=== PATIENT | female | born 1995 | race Caucasian/White ===

== ENCOUNTER 2018-08-24 19:30 | Inpatient (IN) | payer OTHER, MEDICAID, SELFPAY ==
[2017-04-29 13:35] VITALS: BMI 28.7
[2018-08-24 18:57] VITALS: BMI 31.5
[2018-08-24] MEDS: Lactated Ringers 1,000 ML 50 ML IV ×2 (20:18→22:16)
--- NOTE | 2018-08-24 20:26 | PCM.HP.OB ---
History Date of Admission: 08/24/18 Final RONALDO: 08/31/18 Final RONALDO Source: US <20 weeks Gestational age: 39 Weeks and 0 Days History of this : This is a 23 year-old, G 1P0 @ 39 weeks in labor- SROM occurred during observation. Allergies sulfamethoxazole [From Bactrim] Allergy (Verified 04/29/17 13:35) Swelling trimethoprim [From Bactrim] Allergy (Verified 04/29/17 13:35) Swelling Home Medications: Home Medications Albuterol Inhaler [Ventolin Hfa] 1 - 2 puff INHALATION Q4H PRN PRN #1 inhaler 04/29/17 Fluticasone 0.05% [Flonase Nasal [place]] 1 spray NASAL DAILY 10 Days nasal.sry 04/29/17 Prenatabs FA 1 tab PO DAILY 08/24/18 Smoking Status: Current every day smoker Substance Use Type: Marijuana Number of Fetus(es): 1 Heart Tracin mod janeen, + accels no decels TOCO Analysis: q2-4 min History Past Pregnancies: Past Pregnancies Delivery Date Name GA/Weeks Outcome Route Weight Gender Labor Length Anesthesia Delivery Location Provider FOB Labs: A+, Hep B neg, HIV neg, Syphilis NR, GC/Chlamydia neg, HSV culture- negative (on recent lesion), GBS neg Expected Delivery Method: Spontaneous Vaginal Review of Systems Cardiovascular: Denies: Chest Pain Gastrointestinal: Reports: - - + contractions Physical Exam General: Alert, Oriented x3 Abdomen: Soft, Gravid Neurological: Cranial nerves II-XII grossly intact PHOTO STYLIST: Normal external genitalia - no vulvar lesions noted Estimated gestational size: Appropriate for gestational size Presentation: Cephalic Cervix Dilation (cm): 4 Station: -3 Effacement (%): 80 Assessment/Plan This is a 23 year-old, G 1P0 @ 39 weeks in labor admit to L&D [facility] FHR/TOCO Anticipate Nitrous or Epidural if requested
--- NOTE | 2018-08-24 20:31 | HP.PCM_ITS ---
History Date of Admission: 08/24/18 Final RONALDO: 08/31/18 Final RONALDO Source: US <20 weeks Gestational age: 39 Weeks and 0 Days History of this : This is a 23 year-old, G 1P0 @ 39 weeks in labor- SROM occurred during observation. Allergies sulfamethoxazole [From Bactrim] Allergy (Verified 04/29/17 13:35) Swelling trimethoprim [From Bactrim] Allergy (Verified 04/29/17 13:35) Swelling Home Medications: Home Medications Albuterol Inhaler [Ventolin Hfa] 1 - 2 puff INHALATION Q4H PRN PRN #1 inhaler 04/29/17 Fluticasone 0.05% [Flonase Nasal [place]] 1 spray NASAL DAILY 10 Days nasal.sry 04/29/17 Prenatabs FA 1 tab PO DAILY 08/24/18 Smoking Status: Current every day smoker Substance Use Type: Marijuana Number of Fetus(es): 1 Heart Tracin mod janeen, + accels no decels TOCO Analysis: q2-4 min History Past Pregnancies: Past Pregnancies Delivery Date Name GA/Weeks Outcome Route Weight Gender Labor Length Anesthesia Delivery Location Provider FOB Labs: A+, Hep B neg, HIV neg, Syphilis NR, GC/Chlamydia neg, HSV culture- negative (on recent lesion), GBS neg Expected Delivery Method: Spontaneous Vaginal Review of Systems Cardiovascular: Denies: Chest Pain Gastrointestinal: Reports: - - + contractions Physical Exam General: Alert, Oriented x3 Abdomen: Soft, Gravid Neurological: Cranial nerves II-XII grossly intact JOURNEYMAN LEVEL ACOUSTIC ANALYST: Normal external genitalia - no vulvar lesions noted Estimated gestational size: Appropriate for gestational size Presentation: Cephalic Cervix Dilation (cm): 4 Station: -3 Effacement (%): 80 Assessment/Plan This is a 23 year-old, G 1P0 @ 39 weeks in labor admit to L&D [facility] FHR/TOCO Anticipate Nitrous or Epidural if requested
[2018-08-24 20:47] LABS: Hematocrit 34.5 % (37-47); Hemoglobin 11.2 g/dl (12.0-15.0); Mean Corp Hgb Conc 32.5 g/gl (32-36); Mean Corpuscular Hgb 29.8 pg (27.0-32.0); Mean Corpuscular Volume 91.8 fL (81-99); Mean Platelet Vol. 10.8 fl (6.2-12.0); Platelet Count 214 K/mm3 (150-450); RBC Distribution Width CV 16.2 % (11.6-14.6); RBC Distribution Width SD 54.1 fl (35.1-43.9); Red Blood Count 3.76 M/mm3 (4.2-5.4); Scan Indicated on CBC? Y/N NO
[2018-08-25] MEDS: Lactated Ringers 1,000 ML 50 ML IV (03:21)
[2018-08-25] MEDS: Mag Hydrox/Al Hydrox/Simeth 30 ML UDC PO (04:52)
[2018-08-25 06:26] LABS: Amphetamine Urine VISTA NEGATIVE (<1000 ng/mL); Barbiturate Urine VISTA NEGATIVE (< 200 ng/mL); Benzodiazepine Urine VISTA NEGATIVE (< 200 ng/mL); Cocaine Urine VISTA NEGATIVE (< 300 ng/mL); Ecstacy Urine VISTA NEGATIVE (< 500 ng/mL); Methadone Urine VISTA NEGATIVE (< 300 ng/mL); PCP Urine VISTA NEGATIVE (< 25 ng/mL); THC Urine VISTA POSITIVE (< 50 ng/mL); Vista UDS pH Range 5
[2018-08-25] MEDS: Oxytocin 30 units/NS 500 ml 30 UNITS/500 ML IV.SOLN 334 UNITS IV (07:22)
--- NOTE | 2018-08-25 07:32 | PCM.OB.VAG ---
Vaginal Delivery Maternal Presentation: Active Labor Amniotic Membrane Rupture Type: Spontaneous Amniotic Fluid Description: Thick meconium Final RONALDO: 08/31/18 Gestational age: 39 Weeks and 1 Days Date of Procedure: 08/25/18 Pre-Operative Diagnosis: term gestation, spontaneous labor Post-Operative Diagnosis: same, live male infant Surgery/ Procedure Performed: Spontaneous Vaginal Delivery Type of Anesthesia: None Description of Procedure: Examined patient- able to reduce anterior cervix behind head- pt pushed with good effort and delivered without complications- no traction placed with delivery. placenta delivered spontaneously without complication. Presentation: Vertex Placental Delivery Description: Spontaneous Placenta Disposition: [facility] Cord Vessel Description: 3 Vessels Cord Entanglement: None Estimated Blood Loss: 250 Infant A gender: Male (1 minute): 8 (5 minute): 9 Episiotomy Description: None Laceration: None Medications given after delivery: IV Pitocin Complications: None
[2018-08-25] MEDS: Oxytocin 30 units/NS 500 ml 30 UNITS/500 ML IV.SOLN 167 UNITS IV (07:54)
[2018-08-25 12:15] VITALS: BP 128/73; PULSE 116; RESP 16; TEMP 37; O2SAT 100
[2018-08-25 12:27] VITALS: PULSE 116
[2018-08-25 16:55] VITALS: BP 106/72; PULSE 100; RESP 24; TEMP 36.4; O2SAT 100
[2018-08-25 21:00] VITALS: BP 103/58; PULSE 75; RESP 16; TEMP 36.8; O2SAT 98
[2018-08-26 00:45] VITALS: BP 101/67; PULSE 76; RESP 16; TEMP 36.9; O2SAT 96
[2018-08-26 05:00] VITALS: BP 118/83; PULSE 72; RESP 16; TEMP 36.6; O2SAT 99
[2018-08-26 07:55] VITALS: BP 111/73; PULSE 88; RESP 18; TEMP 36.6; O2SAT 98
--- NOTE | 2018-08-26 07:55 | ED.RN ---
pt complains of perineal pain. tucks pads and usage instruction provided
--- NOTE | 2018-08-26 09:10 | PCM.PN.OB ---
Subjective: pt seen at bedside, doing well. pt reports good pain control. lochia mild. Breast feeding well. - Physical Exam General: Alert, Oriented x3 Abdomen: Soft, Non Tender, Non-Distended, - - fundus firm. Extremities: No Calf Tenderness Vital Signs Temp Pulse Resp BP Pulse Ox 97.9 F 72 16 118/83 H 99 08/26/18 05:00 08/26/18 05:00 08/26/18 05:00 08/26/18 05:00 08/26/18 05:00 Oxygen Delivery Method Room Air Weight: 75.75 kg Body Mass Index (BMI) 31.5 Intake and Output for Last 24 Hours 08/24/18 08/25/18 08/26/18 23:59 23:59 23:59 Output Total 200 / 200 500 / 500 Balance -200 / -200 -500 / -500 Medical Necessity - Tobacco Use Smoking Status: Current every day smoker Assessment/Plan PPD#1, doing well routine care pain mgmt
--- NOTE | 2018-08-26 09:12 | DCINST_ITS ---
Addendum entered and electronically signed by Danette Michael CNM 08/27/18 08:55: Patient should schedule 2 week PP visit with Eber Michael CNM Original Note: Discharge Diet: No Restrictions Discharge Activity: Return to Normal Activity, May not drive while taking narcotic pain medications., May Shower May resume sexual activity in: 4-6 weeks Additional Activity Instructions:: Nothing in the vagina for 4-6 weeks. You may return to work/school in 6 weeks. Call your doctor if your incision/area has: Continuous Slow Oozing, Sudden Increased Bleeding, Increased Pain/ Swelling, Increased Redness, Foul Smelling Discharge Additional Instructions: If you experience any of the following, contact your healthcare provider. * Bleeding that soaks a pad every hour for 2 hours * Fever 100.4 or higher * Unrelieved incision or abdominal pain * Swelling, redness, discharge or bleeding from your incision or episiotomy site * Your incision begins to separate * Problems urinating (including inability to urinate or burning while urinating). * Visual changes * Severe headache * Flu-like symptoms * Pain or redness in one of both of your breasts * Pain, warmth, tenderness or swelling in your legs, especially the calf area * Frequent nausea and vomiting * Symptoms of depression or anxiety If you experience any of the following, call 911 or go to the nearest Emergency Room. * Chest pain * Problems breathing * Seizure activity * Partial or complete paralysis of a body part, slurred speech, weakness or drooping of the face, or a sudden inability to walk or hold your balance Allergies/Adverse Reactions: Allergies sulfamethoxazole [From Bactrim] Allergy (Verified 04/29/17 13:35) Swelling trimethoprim [From Bactrim] Allergy (Verified 04/29/17 13:35) Swelling Medications to take at Discharge Albuterol Inhaler [Ventolin Hfa] 1 - 2 puff INHALATION Q4H PRN PRN #1 inhaler 04/29/17 Fluticasone 0.05% [Flonase Nasal [place]] 1 spray NASAL DAILY 08/24/18 Prenatabs FA 1 tab PO DAILY 08/24/18 Ibuprofen [Motrin] 600 mg PO Q6H PRN PRN #30 tablet 08/26/18 The following prescriptions were given: Ibuprofen [Motrin] 600 mg PO Q6H PRN PRN #30 tablet PRN Reason: Mild Pain (-09/30) When: Call to make an appointment with your doctor in 6 weeks. If you had elevated Blood Pressure or 4th degree laceration you will need to be seen in 2 weeks. Primary Care Physician: Care Physician,No Primary [Primary Care Provider] - Test Results: Test results from this visit will be discussed in further detail at your follow- up appointment, if applicable.
[2018-08-26 14:40] VITALS: BP 119/79; PULSE 68; RESP 16; TEMP 36.3; O2SAT 97
--- NOTE | 2018-08-26 14:40 | NURSING ---
mom and dad using baby powder on infants buttock. education provided on why the use of powder is not recommended. both parents acknowledge understanding
[2018-08-26 20:00] VITALS: BP 109/67; PULSE 69; RESP 16; TEMP 37
[2018-08-27 02:00] VITALS: BP 117/70; PULSE 54; RESP 14; TEMP 37
[2018-08-27 08:00] VITALS: BP 122/81; PULSE 65; RESP 18; TEMP 36.7
--- NOTE | 2018-08-27 08:56 | PCM.PN.OB ---
Subjective: Patient sitting up today. Patient's partner is present in the room and is bonding and holding infant at this time. Patient denies any issues or concerns. Reports that is going well. Denies issues with ambulation and urination. Reports +flatus. Desires discharge to home today. Objective: VSS, Afebrile Nipples without cracks, blisters or evidence of ecchymoses Abdomen NT x 4 quadrants, FF midline 1FB below umbilicus Perineum intact, scant rubra lochia +2/4 reflexes, no edema, negative calf tenderness to palpation - Physical Exam General: Alert, Oriented x3, Cooperative HEENT: Atraumatic, Normocephalic Neck: Supple Lungs: Normal air movement Cardiovascular: Regular rate, Regular Rhythm Abdomen: Soft, Non Tender Extremities: No edema, Capillary Refill Less than 3 Seconds Skin: No rashes, No breakdown Musculoskeletal: No Tenderness to Palpation of Joints or Extremities Neurological: Cranial nerves II-XII grossly intact Psych/Mental Status: Normal Affect, Appropriate Vital Signs Temp Pulse Resp BP Pulse Ox 98.0 F 65 18 122/81 H 97 08/27/18 08:00 08/27/18 08:00 08/27/18 08:00 08/27/18 08:00 08/26/18 14:40 Oxygen Delivery Method Room Air Weight: 167 lb Body Mass Index (BMI) 31.5 Intake and Output for Last 24 Hours 08/25/18 08/26/18 08/27/18 23:59 23:59 23:59 Output Total 500 / 500 300 / 300 Balance -500 / -500 -300 / -300 Medical Necessity - Tobacco Use Smoking Status: Current every day smoker Assessment/Plan 23 y/o now, s/p , PPD #2, Normal PP Course P: 1) Discharge to home pending discharge and completion of social service consult 2) Anticipatory health teaching and PP teaching to be completed 3) RTC in 2 weeks and 6 weeks PP Danette VENTURA
[2018-08-27 13:40] VITALS: BP 125/85; PULSE 80; RESP 18; TEMP 36.7
--- NOTE | 2018-08-27 16:20 | CASEMGMT ---
Addendum entered and electronically signed by Zoe Cole 08/27/18 16:35: Reviewed and approve FRAME HAND student documentation below. Also note, in addition to referral by Dr. Jerome, also received referral from the OBGYN, Dr. Lopez. -Zoe Cole, ROMAN-Kasey, INTEGRATION AIDE Original Note: Social Work Assessment Labor and Delivery Unit Date of Referral: 08/25/2018 Time of Referral: 13:38PM Referred By: Dr. Kolton Jerome Date of Intervention: 08/27/2018 Time of Intervention: 11:30 - 13:00 Reason for Referral: positive marijuana tox screen during , infant exposed to marijuana while in the womb. History obtained from: medical record, mother of baby (MOB) Karina Al, father of baby (FOB) Jose Tomlin. Household composition: MOB and FOB are currently living with FOB's parents, Joao Tomlin and Marj Tomlin. MOB and FOB will be taking baby to this residence upon discharge. Patient's parent/guardian status: MOB and FOB have been together off and on again since high school, identify as high school sweethearts, currently have been together for 10-11 months per FOB. Denies any history of abuse or violence in this relationship. This is the first child for both parties. Medical History: MOB is to 1 after delivering baby Jose Cespedes. MOB began care (PNC ) at 10 weeks. There was a gap between PNC visits from 31 weeks to 38 weeks noted in record. MOB reports to have had gap due to being okay and not needing any visits during that time. Educational Status: MOB graduated high school and had IEP for ADHD. MOB reports can read, write, and understand what is read but struggles with comprehension due to ADHD. FOB graduated high school and attended some college. Financial Status: MOB is currently unemployed. 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 FOB is working at [employer], a [employer] type of [employer]. Supplies: MOB and FOB report they have a crib for sleeping and presented appropriate car seat in the hospital room. Expressed that they do have enough clothing and diapers. They were waiting to receive the breast pump from their insurance at this time. Childcare/Caregiver(s): MOB and FOB plan to be primary care givers as MOB will be staying home with the baby. FOB will be working first shift and helping to provide care when not at work. FOB's parents Joao and Marj will also be supplemental caregivers as needed when MOB and FOB are not home or need a break. Transportation: TYRELL drives and has his own car. KAROLINA does not have her drivers license. Programs/Agencies Involved: KAROLINA reports to have food stamps through [facility] [employer]. [facility] Resources list provided. KAROLINA reported to be getting set up with a [facility] appointment when she gets a new ID. MOB declined [facility] referral and preferred to call for information herself. KAROLINA has regular counseling appointments with El[facility] at [facility]. Children Services/Legal Issues: No discussion or presentation of children services or legal issues. KAROLINA did mention she and her mother have a nehemias relationship due to her mother spending some previous time in [facility]. Behavioral Health Issues: Mental Health History: KAROLINA reports to have ADHD/ADD diagnosis. Prior to MOB attended counseling and was taking Adderall but discontinued prescription when learned of . MOB continued counseling throughout . TYRELL has also started joining for counseling. KAROLINA does not currently have plans to resume Adderall due to breast feeding and does not want the medication to pass to the baby. MOB does plan to later resume Adderall down the road when not breast feeding. Denies any history or present thoughts, plans, or intent for suicide. Also denies want to harm others or baby. Substance Use History: KAROLINA reports to have occasionally used marijuana. TYRELL is a regular user of marijuana. MOB expressed that marijuana usage was to help with focus. MOB also used on birthday of [birth year]. MOB denied a history of alcohol or usage of other drugs. Family History: KAROLINA does not have a strong relationship with her parents. MOB explained her mother was a previous cocaine user but is now roughly two years sober. TYRELL expressed that only his mother smokes cigarettes and his parents do not use any other drugs. Drug Screens: Positive marijuana toxicology screen results during PNC visits on 02/05/18 and 08/23/18. Positive marijuana tox screen at delivery in [facility] on 08/25/18. MOB expressed that believed testing was positive due to usage on birthday and possible second hand smoke from FOB. Baby's urine was negative at delivery and meconium results are pending at this time. Family/Social Stressors: MOB did not report any stressors other than the poor relationship with mother. FOB reports stressors with MOB's issues with focus, stubbornness, and comprehension. FOB expressed being worried about MOB being alone with the baby for the reason that he will not be able to be there to remind or monitor care of the baby. FOB reported wanting Jose Duron to have the best care and fearful MOB will not provide timely feedings or diaper changes. Also expressed fear of MOB leaving with the baby while FOB is not home. Support Systems: MOB and FOB both reported that FOB's mother, father, and siblings are their main supports. FOB's parents have 11 other grandchildren and large support system within the family as they are all very, very close Depression/Shaken Baby/Safe Sleeping: Shaken baby information and precaution reviewed with both MOB and FOB. They provided adequate responses when asked regarding precautions and preventions. Safe Sleeping information given and review with MOB and FOB and provided corrects ABC model of sleeping. Post Depression information reviewed with MOB and FOB. Also encouraged MOB and FOB to use checklist on front page of packet to review symptoms together if worries arise while at home. ASSESSMENT: MOB and FOB calm and pleasant to work with. FOB was asked to leave at initial start of assessment to speak with MOB alone. FOB expressed interest in speaking with long term care social worker and wanted to have a chance to do so. Father left willingly. MOB had baby in arms and switched positions with him to better attempt to get baby to burp. Showed positive signs of bonding and care as she was gentle and interested. Assessment was led by social work FRAME HAND student marketing intern while licensed master social worker observed and interjected when necessary. MOB answered questions presented by social work student marketing intern while tending to the baby. MOB soon expressed that she wanted to breast feed the baby alone and take a break from chatting. FOB approached nurses station and requested to talk to long term care social worker and marketing intern alone. FOB expressed concerns regarding fears of leaving MOB alone with baby, concerns with MOB's ADHD staying untreated, comprehension issues, argumentative tendencies, and his personal fear of MOB leaving with the baby. FOB expressed deep concern for MOB showing signs or symptoms of PPD as their communication skills have been slowly improving but still causing problems within their relationship. pasteurizing supervisor and marketing intern listen to FOB and concerns presented. Maintained MOB's confidentiality and provided support to FOB and advice. Returning to the patient's room, FOB and MOB were both joining the conversation with topic of PPD. FOB was tending to baby and changing his diaper. FOB also held baby throughout duration of conversation and showed positive signs of bonding and care. FOB seemed open and receptive to information provided about PPD and information of signs and symptoms checklist by asking questions. MOB did at times seem to be inattentive and focused on other things in the room instead of listening and discussing but acknowledged long term care social worker at times. MOB and FOB were informed about the necessity to make a report to Children's Services for the reason of the positive tox screen of marijuana and exposure to the baby. MOB and FOB were accepting of information and provided time to ask question with none in mind. Safe Plan of Care for infant related to substance use: If MOB decided to use marijuana again FOB explained baby would be in safe care of FOB or paternal grandparents. FOB expressed that there will no longer be smoking of marijuana or cigarettes within the house. MOB expressed no plans to smoke marijuana at this moment due to breast feeding. FOB intends to quit both marijuana and cigarettes but explained it is a big process. PLAN: Mom and baby to home with FOB and parents. Social work to complete referral to [facility] for safety of the baby and follow up on community. [facility] Resources packet provided and reviewed with parents. [facility] information, PPD, and safe sleeping brochure included. No other services requested or indicated. -Batsheva Seo, FRAME HAND Student Explosive Ordnance Disposal Specialist.
--- NOTE | 2018-08-28 11:38 | CASEMGMT ---
Addendum entered and electronically signed by Zoe Cole 08/28/18 14:14: Reviewed and approve MANAGER UNIX student documentation below. -HARDEEP Lazar, RAIL WALKER Original Note: Social Work Labor and Delivery A referral was made to [facility] at [phone] with Nazia. Safety concern for the baby regarded the positive toxicology screens for marijuana and other worries presented by the FOB. No other services requested or indicated at this time. Baby's meconium results are still pending and [facility] will be updated upon return. -Batsheva Seo, MANAGER UNIX Student Senior Warehouse Clerk.
--- NOTE | 2018-08-28 12:30 | NURSING ---
Late entry: discussed risks associated with pt regarding THC use and . Pt denies that she uses THC. Reviewed with pt admission drug screen showing positive results for THC. Pt stated I was in the same room as people smoking marijuana. This nurse reviewed that any exposure to drug use can adversely affect if mother is . Pt verbalized understanding.
--- NOTE | 2018-09-06 13:23 | NURSING ---
Spoke with mother , Mother is doing well.
--- NOTE | 2018-09-06 15:58 | CASEMGMT ---
Addendum entered and electronically signed by Zoe Cole 09/06/18 16:55: Reviewed and approve TALENT DIRECTOR student hospital internship documentation below. This display card writer present when call to [facility] made. Elisa spoke with Chayo Rogers for referral. -HARDEEP Lazar, CERAMIC DESIGN ENGINEER Original Note: Social Work Labor and Delivery Meconium drug screen for baby Jose returned positive and child services was notified. -Batsheva Seo, TALENT DIRECTOR Student Flume Worker.
== END 2018-08-27 14:00 | disposition home or self-care (01) | DRG 806 ==
LOC: WPOUT 19:42 → WP 19:42
PROVIDERS: Obstetrics & Gynecology; Admitting Provider Obstetrics & Gynecology; Referring Provider Obstetrics & Gynecology; Visit Provider Obstetrics & Gynecology
DX: O77.0 Labor and delivery complicated by meconium in amniotic fluid (principal); O99.324 Drug use complicating childbirth; Z37.0 Single live birth; F17.200 Nicotine dependence, unspecified, uncomplicated; F12.20 Cannabis dependence, uncomplicated; Z3A.39 39 weeks gestation of pregnancy
CPT/HCPCS: 59025; 59050; 80307; 85027; 86850; 86900; 99218; J7120; G0378

== ENCOUNTER 2018-12-01 05:42 | Emergency (ER) | payer OTHER, MEDICAID, SELFPAY ==
[2018-12-01 05:43] VITALS: BP 134/94; PULSE 86; RESP 16; TEMP 36.6; O2SAT 99; BMI 28.6
--- NOTE | 2018-12-01 05:52 | ED.DCSUM_ITS ---
- ER Visit Summary Date of Service: 12/01/18 Chief Complaint: I want to be checked to see if I have bronchitis History of Present Illness: The patient is a 23 F who is actually a visitor here in the emergency department. She states she has had a cough for about 2 weeks and while she was here she just wanted checked for bronchitis. She does have some congestion and runny nose. Her cough is occasionally productive. She has chest pain with coughing. No fevers or vomiting. She denies medical history. She is a smoker. Physical Examination: Afebrile vitals normal Patient in no distress. Heart regular rate and rhythm Lungs are clear without rales rhonchi wheezes Abdomen soft Alert Test Results: Not indicated Emergency Department Course and Treatment: History and examination is consistent with bronchitis. She was advised on supportive care. Patient discharged. Treatment Plan: [] Disposition: Discharge Impression: Bronchitis This note was generated with [employer] dictation software. It may contain incorrect words, spelling, and punctuation that were not noted in review of the chart prior to signing ED Disposition - Plan for ED Patient: Referrals: Care Physician,No Primary [Primary Care Provider] -
--- NOTE | 2018-12-01 05:52 | ED.DEP ---
ED Disposition - Plan for ED Patient: Instructions: Acute Bronchitis Referrals: Care Physician,No Primary [Primary Care Provider] -
== END 2018-12-01 06:15 | disposition home or self-care (01) ==
PROVIDERS: Emergency Provider Emergency Medicine
DX: J40 Bronchitis, not specified as acute or chronic (principal); Z72.0 Tobacco use
CPT/HCPCS: 99282

== ENCOUNTER 2020-01-05 10:35 | Inpatient (IN) | payer OTHER, MEDICAID, SELFPAY ==
[2019-02-18 21:28] VITALS: BMI 26.7
[2020-01-05] VITALS (45 sets, daily range): BP systolic 118–160; BP diastolic 68–95; PULSE 68–114; RESP 18; TEMP 36.2–36.8; O2SAT 89–100; BMI 29.2
[2020-01-05] MEDS: Lactated Ringers 1,000 ML 200 ML IV (11:29)
[2020-01-05 11:30] LABS: Absolute Lymphocyte Count 1.34 X10^3/uL (0.83-4.51); Basophil# 0.02 X10^3/uL; Basophil% 0.1 % (0-1); Eosinophil# 0.03 X10^3/uL; Eosinophils% 0.2 % (0-5); Hematocrit 31.5 % (37-47); Hemoglobin 10.1 g/dL (12.0-15.0); Lymphocyte # 1.34 X10^3/ul (4.0); Mean Corp Hgb Conc 32.1 g/dL (32-36); Mean Corpuscular Hgb 28.9 pg (27.0-32.0); Mean Corpuscular Volume 90.3 fL (81-99); Mean Platelet Vol. 10.6 fl (6.2-12.0); Monocyte# 0.97 X10^3/uL; Monocyte% 7.2 % (0-10); NRBC Flagged by Analyzer 0 % (0-5); Neutrophil # 11.01 X10^3/uL (2.7-7.7); Neutrophil % 81.9 % (47-70); Platelet Count 239 K/mm3 (150-450); RBC Distribution Width CV 15.6 % (11.6-14.6); RBC Distribution Width SD 50.6 fl (35.1-43.9); Red Blood Count 3.49 M/mm3 (4.2-5.4); White Blood Count 13.5 K/mm3 (4.4-11.0)
[2020-01-05 12:16] LABS: Amphetamine Urine VISTA NEGATIVE (<1000 ng/mL); Barbiturate Urine VISTA NEGATIVE (< 200 ng/mL); Benzodiazepine Urine VISTA NEGATIVE (< 200 ng/mL); Cocaine Urine VISTA NEGATIVE (< 300 ng/mL); Ecstacy Urine VISTA NEGATIVE (< 500 ng/mL); Methadone Urine VISTA NEGATIVE (< 300 ng/mL); PCP Urine VISTA NEGATIVE (< 25 ng/mL); THC Urine VISTA NEGATIVE (< 50 ng/mL); Vista UDS pH Range 5
[2020-01-05 12:39] LABS: Group B Strep DNA By PCR Negative (Negative); Internal Control PASS; Probe Check PASS; Specimen Processing Control PASS
--- NOTE | 2020-01-05 12:40 | HP.PCM_ITS ---
- Problem List (1) 39 weeks gestation of Status: Acute (2) Late care Status: Acute (3) Limited care Status: Acute (4) Tobacco abuse Status: Acute (5) Marijuana abuse Status: Acute (6) Short interval between pregnancies affecting , antepartum Status: Acute History Date of Admission: 08/24/18 Final RONALDO: 01/12/20 Final RONALDO Source: US <20 weeks Gestational age: 39 Weeks and 0 Days History of this : This is a 24 year-old, G 2, P 1001, at 39 weeks gestational age who presents with ctx'x. No vb, lof. Good FM. Medical History: Medical History (Last Updated 01/05/20 @ 12:[address] Annika Meeks DO) ADD (attention deficit disorder) F98.8 Herpes B00.9 History of gonorrhea Z86.19 Surgical History: Surgical History (Last Updated 01/05/20 @ 12:[address] Annika Meeks DO) History of foot surgery Z98.890 Allergies sulfamethoxazole [From Bactrim] Allergy (Verified 01/05/20 10:10) Swelling trimethoprim [From Bactrim] Allergy (Verified 01/05/20 10:10) Swelling Home Medications: Home Medications Acyclovir 400 mg PO TID 01/05/20 Ferrous Sulfate [Iron] 325 mg PO BID 01/05/20 Vit No.130/Iron/Folic [ Tablet] 1 ea PO DAILY 01/05/20 Smoking Status: Current every day smoker Substance Use Type: Marijuana, Prescribed Number of Fetus(es): 1 NST - FHR Rate Baby A FHR Category:: Category I History Past Pregnancies: Past Pregnancies Delivery Date Name GA/ Weeks Outcome Route Wt Infant Sex Labor Length Anesthesia Delivery Location Provider FOB 39 [id number] Labs: GBS unknown as she has not been seen for recent care UDS positive THC Hgb 9.4, plt 224 1 hr GTT 114 Syphilis NR RI Hep B neg HIV NR A positive Ab screen neg Hep C neg GC/CT neg Expected Delivery Method: Spontaneous Vaginal Number of Visits: 6 Review of Systems Gynecological: Reports: - - +Ctx Physical Exam Vitals: Vital Signs Temp Pulse BP Pulse Ox 97.7 F L 109 H 140/87 H 99 01/05/20 10:55 01/05/20 10:58 01/05/20 10:58 01/05/20 10:58 General: Alert HEENT: Atraumatic Lungs: Normal air movement Abdomen: Soft, Gravid Extremities:: No edema Neurological: Neuro grossly intact PSYCHIATRIC TECHNICIAN: Normal external genitalia - No herpes lesions Estimated gestational size: Appropriate for gestational size Presentation: Cephalic Cervix Dilation (cm): 4 Station: -2 Effacement (%): 80 Assessment/Plan All Active Problems (Last Updated 01/05/20 @ 12:[address] Annika Meeks, DO) 39 weeks gestation of (Acute) Late care (Acute) Limited care (Acute) Tobacco abuse (Acute) Marijuana abuse (Acute) Short interval between pregnancies affecting , antepartum (Acute) This is a 24 year-old, G 2, P 1, at 39 weeks gestational age admitted for labor management. - Routine intrapartum care - GBS unknown, will collect GBS - GC/CT and UDS - Pt was late to care and had limited care. Has not been seen in the office for about 1 month. She says this was due to transportation issues, as well as her sleeping in. Will have social work see her - AROM performed for meconium stained fluid
[2020-01-05 12:50] LABS: Prothrombin Time (Protime)PT. 12.2 SECONDS (11.7-14.9)
[2020-01-05 12:51] LABS: Partial Thromboplast Time 26.5 Seconds (24.1-36.2); Protein, Urine (Random) 64.1 mg/dL (<11.9); Protein:Creat Ratio 341 mg/g CRE (0-200)
[2020-01-05 12:57] LABS: Probe Check PASS; Specimen Processing Control PASS
[2020-01-05 13:01] LABS: AST(SGOT) 15 U/L (15-37); Alanine Aminotransfer ALT/SGPT 14 U/L (13-56); Creatinine, Serum 0.52 mg/dL (0.55-1.02); EST Glomerular Filtration Rate 153 mL/min (>60); Est Glom Filt Rate - Afr Amer 185 mL/min (>60); Estimated Creatinine Clearance 126.97 ml/min; Uric Acid 4.3 mg/dL (2.6-6.0)
[2020-01-05 13:27] LABS: Chlamydia Trachomatis by PCR Negative (Negative); Neisserai gonorrhoeae by PCR Negative (Negative); Probe Check PASS; Sample Adequacy Control PASS; Specimen Processing Control PASS
[2020-01-05] MEDS: Amnioinfusion- 0.9% NS 1,000 ML IV.SOLN. 200 ML INTRA-UTER (16:53)
[2020-01-05] MEDS: Lactated Ringers 1,000 ML 50 ML IV (16:53)
[2020-01-05] MEDS: Oxytocin 30 units/NS 500 ml 30 UNITS/500 ML IV.SOLN 334 UNITS IV (17:45)
--- NOTE | 2020-01-05 17:56 | PCM.OPRPT ---
Problem List (1) 39 weeks gestation of Status: Acute (2) Late care Status: Acute (3) Limited care Status: Acute (4) Tobacco abuse Status: Acute (5) Marijuana abuse Status: Acute (6) Short interval between pregnancies affecting , antepartum Status: Acute Report of Operation Date of Procedure: 01/05/20 Pre-Operative Diagnosis: 39 week gestation, labor, late to care, scant care Post-Operative Diagnosis: As above Surgery/Procedure Performed:: Description of Surgical Findings:: VFI in OA position. Normal appearing placenta with 3 VC Type of Anesthesia:: None Special Medications: None Specimen's removed: Placenta Drains: None Estimated Blood Loss (mL): 300 Description of Procedure: Patient complete and pushing. Head of infant delivered in occiput anterior position, followed by shoulders and body of infant without any force or delay. There was a loose nuchal cord around the body of the . Viable female infant was delivered atraumatically and placed on maternal abdomen. Cord was clamped and cut after a 60 sec delay. The placenta was delivered spontaneously and noted to be normal-appearing and intact with a three-vessel cord. The fundus was firm and bleeding hemostatic. Uterus was explored x1. There was a small abrasion near the urethral opening that was hemostatic. No lacerations noted. Sponge and instrument counts were correct. Grafts/Implants Used: None - Complications None - Admit VTE Documentation VTE Present on Admission: No VTE Mechan Device Prophylaxis: SCD's Vaginal Delivery Maternal Presentation: Active Labor Amniotic Membrane Rupture Type: Artificial Amniotic Fluid Description: Clear Surgery/ Procedure Performed: Spontaneous Vaginal Delivery Type of Anesthesia: None Presentation: Vertex Placental Delivery Description: Spontaneous Cord Vessel Description: 3 Vessels Nuchal Cord Compression: Without compression Infant A gender: Female (1 minute): 8 (5 minute): 9 Episiotomy Description: None Laceration: None Medications given after delivery: IV Pitocin
[2020-01-06 03:18] VITALS: BP 134/79; PULSE 96; RESP 18; TEMP 36.7
--- NOTE | 2020-01-06 08:24 | PN.OBGYN_ITS ---
Patient Problems: Active and Suspected Problems (Last Updated 01/05/20 @ 12:[address] Annika Meeks, DO) 39 weeks gestation of (Acute) Late care (Acute) Limited care (Acute) Tobacco abuse (Acute) Marijuana abuse (Acute) Short interval between pregnancies affecting , antepartum (Acute) Subjective: Doing well per patient and nursing staff. Ambulating and taking PO without difficulty. Voiding and passing flatus. Bottle feeding. Planning D/C home today. - Physical Exam Vitals/I&O's: Vital Signs Temp Pulse Resp BP Pulse Ox 98.1 F 96 18 134/79 H 98 01/06/20 03:18 01/06/20 03:18 01/06/20 03:18 01/06/20 03:18 01/05/20 17:51 Oxygen Delivery Method Room Air Weight: 155 lb 1.6 oz Body Mass Index (BMI) 29.2 Intake and Output for Last 24 Hours 01/04/20 01/05/20 01/06/20 23:59 23:59 23:59 Intake Total 1340.83 / 1340.83 Output Total 200 / 200 Balance 1140.83 / 1140.83 General: Alert, Oriented x3, Cooperative HEENT: Atraumatic, Normocephalic Neck: Trachea Midline Lungs: Clear to auscultation, Normal air movement, No rhonchi, No wheeze Cardiovascular: Regular rate, Regular Rhythm, No murmurs Abdomen: Bowel Sounds Present - fundus firm 2 below Extremities: No edema Psych/Mental Status: Normal Affect, Appropriate Laboratory Results 01/05/20 11:10: WBC 13.5 H, RBC 3.49 L, Hgb 10.1 L, Hct 31.5 L, MCV 90.3, MCH 28.9, MCHC 32.1, RDW Std Deviation 50.6 H, RDW Coeff of Roma 15.6 H, Plt Count 239, MPV 10.6, Immature Gran % (Auto) 0.600, Neut % (Auto) 81.9 H, Lymph % (Auto) 10.0 L, [place] % (Auto) 7.2, Eos % (Auto) 0.2, Baso % (Auto) 0.1, Absolute Neuts (auto) 11.0 H, Absolute Lymphs (auto) 1.34, Nucleated RBC % 0 01/05/20 11:10: Blood Type A POSITIVE, Antibody Screen NEGATIVE 01/05/20 11:10: Urine Opiates Screen NEGATIVE, Urine Methadone Screen NEGATIVE, Ur Barbiturates Screen NEGATIVE, Ur Phencyclidine Scrn NEGATIVE, Ur Amphetamines Screen NEGATIVE, U Methamphetamin-MDMA NEGATIVE, U Benzodiazepines Scrn NEGATIVE, Urine Cocaine Screen NEGATIVE, U Cannabinoids Screen NEGATIVE, Ur Drug Screen Comment 01/05/20 11:10: Chlam trachomat DNA PCR Negative, N.gonorrhoeae DNA (PCR) Negative 01/05/20 11:10: PT 12.2, INR 1.0, APTT 26.5 01/05/20 11:10: Creatinine 0.52 L, Estim Creat Clear Calc 126.97, Est GFR (MDRD) Af Amer 185, Est GFR (MDRD) Non-Af 153, Uric Acid 4.3, AST 15, ALT 14 01/05/20 11:10: U Random Total Protein 64.1 H, Urine Creatinine 188.00, Protein/Creatinin Ratio 341 H 01/05/20 11:25: Group B Strep DNA Negative, Specimen Comment Not Reportable 01/05/20 11:30: COVID-19 (SLY) Negative Current Medications Acetaminophen (Tylenol) 1,000 mg PO Q8H PRN PRN PRN Reason: Pain Score 1-10/10 Bisacodyl (Dulcolax) 10 mg RECTAL UD PRN PRN Reason: If no BM Dibucaine (Dibucaine) 1 applic TOPICAL TID PRN PRN; Protocol PRN Reason: Discomfort Hydrocortisone (Hytone) 1 applic TOPICAL TID PRN PRN; Protocol PRN Reason: Discomfort Ibuprofen (Motrin) 600 mg PO Q6H PRN PRN PRN Reason: Pain Score 1-10/10 Methylergonovine Maleate (Methergine) 0.2 mg IM X1 PRN PRN Reason: Excess bleeding/uterine atony Ondansetron HCl (Zofran) 4 mg IV Q4H PRN PRN PRN Reason: Nausea Senna/Docusate Sodium (Senokot-S, Lenore-Colace) 1 - 2 tablet PO DAILY PRN PRN PRN Reason: Constipation Simethicone (Mylicon) 80 mg PO PCHS PRN PRN Reason: Indigestion/Stomach pain Sodium Chloride () 5 - 15 ml IV UD PRN PRN Reason: SALINE FLUSH Medical Necessity - Tobacco Use Smoking Status: Current every day smoker Assessment/Plan All Active Problems (Last Updated 01/05/20 @ 12:[address] Annika Meeks, DO) 39 weeks gestation of (Acute) Late care (Acute) Limited care (Acute) Tobacco abuse (Acute) Marijuana abuse (Acute) Short interval between pregnancies affecting , antepartum (Acute) A:PPD #1 P: 1) Routine care. 2) Planning D/C home today.
[2020-01-06 08:25] VITALS: BP 124/85; PULSE 78; RESP 15; TEMP 36.6
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
[2020-01-06 14:00] VITALS: BP 125/84; PULSE 57; RESP 15; TEMP 36.6
--- NOTE | 2020-01-06 15:30 | NURSING ---
Charge nurse in to help Mother assist with filling out her certificate. Mom Tearful when nurse walked in. Voices trying to get hold of significant other to see what he wanted her to do about the certificate. He did not answer her call. Assisted with certificate and significant other called back. tearful she asked him what he wanted her to do Servando vs Nabor. He stated your last name and change her name, I don't want her to have the name I like. Pt stated to him that he knows this is his baby. She hung up on him. She states He wants me to change the name but I like this name. I did in form her she is the one that fills out the certificate and has the right to name the baby what she chooses. Did ask the pt if she felt safe going to his house with him being negative to her. She stated she did and that his mom is a good helper. She will leave and go to her Mom's if she needs to. [place] social work supervisor notified of the above and will be in contact with significant others mother and charge nurse.
--- NOTE | 2020-01-06 16:00 | CASEMGMT ---
Social Work Updated by nursing staff about FOB and MOB having a dispute over telephone about paternity, certificate and infant name. Nursing staff reporting that FOB was not very kind to patient. Met with MOB in room. This hospital social worker broached concern for patient safety with discharge to FOB's home. MOB stating that everything is fine with FOB and that MOB and FOB just had a disagreement. MOB reports to know that FOB is the father. MOB states that FOB set up a paternity test for Monday of this week to confirm MOB's statements. MOB states to feel safe with FOB and in FOB's home. MOB with no further concerns. MOB states that MOB's mother is coming to mixing picker tender MOB to bring MOB and infant to FOB's home. Updated nursing staff. Florina NEVES, ROMAN
[2020-01-06] MEDS: Etonogestrel 68 MG IMPLANT SQ (17:02)
--- NOTE | 2020-01-06 17:32 | PCM.PROGNOTE ---
Patient Problems: Active and Suspected Problems (Last Updated 01/05/20 @ 12:[address] Annika Meeks, DO) 39 weeks gestation of (Acute) Late care (Acute) Limited care (Acute) Tobacco abuse (Acute) Marijuana abuse (Acute) Short interval between pregnancies affecting , antepartum (Acute) Subjective: Requesting Nexplanon Device for control Objective: Reviewed Nexplanon risks, benefits, and alternatives. Consent form reviewed and signed. Right arm prepped with Betadine. 1% Lidocaine instilled into left arm. Nexplanon inserted without difficulty, patient tolerated well. Steri strips and pressure dressing applied. - Physical Exam Vitals/I&O's: Vital Signs Temp Pulse Resp BP Pulse Ox 97.9 F 57 L 15 125/84 H 98 01/06/20 14:00 01/06/20 14:00 01/06/20 14:00 01/06/20 14:00 01/05/20 17:51 Oxygen Delivery Method Room Air Weight: 155 lb 1.6 oz Body Mass Index (BMI) 29.2 Intake and Output for Last 24 Hours 01/04/20 01/05/20 01/06/20 23:59 23:59 23:59 Intake Total 1340.83 / 1340.83 Output Total 200 / 200 Balance 1140.83 / 1140.83 Current Medications Acetaminophen (Tylenol) 1,000 mg PO Q8H PRN PRN PRN Reason: Pain Score 1-10/10 Bisacodyl (Dulcolax) 10 mg RECTAL UD PRN PRN Reason: If no BM Dibucaine (Dibucaine) 1 applic TOPICAL TID PRN PRN; Protocol PRN Reason: Discomfort Hydrocortisone (Hytone) 1 applic TOPICAL TID PRN PRN; Protocol PRN Reason: Discomfort Ibuprofen (Motrin) 600 mg PO Q6H PRN PRN PRN Reason: Pain Score 1-10/10 Methylergonovine Maleate (Methergine) 0.2 mg IM X1 PRN PRN Reason: Excess bleeding/uterine atony Ondansetron HCl (Zofran) 4 mg IV Q4H PRN PRN PRN Reason: Nausea Senna/Docusate Sodium (Senokot-S, Lenore-Colace) 1 - 2 tablet PO DAILY PRN PRN PRN Reason: Constipation Simethicone (Mylicon) 80 mg PO PCHS PRN PRN Reason: Indigestion/Stomach pain Sodium Chloride () 5 - 15 ml IV UD PRN PRN Reason: SALINE FLUSH Medical Necessity - Tobacco Use Smoking Status: Current every day smoker Assessment/Plan All Active Problems (Last Updated 01/05/20 @ 12:[address] Annika Meeks, DO) 39 weeks gestation of (Acute) Late care (Acute) Limited care (Acute) Tobacco abuse (Acute) Marijuana abuse (Acute) Short interval between pregnancies affecting , antepartum (Acute) A: Nexplanon insertion P: 1) Routine care of nexplanon reviewed. Leave pressure dressing applied for 24hr. 2) Follow up in office for visit.
--- NOTE | 2020-01-06 17:35 | DCINST_ITS ---
Discharge Diet: No Restrictions Discharge Activity: Return to Normal Activity, May not drive while taking narcotic pain medications., May Shower May resume sexual activity in: 4-6 weeks Weight Bearing Status: Full weight bearing Additional Activity Instructions:: Nothing in the vagina for 4-6 weeks. You may return to work/school in 6 weeks. Call your doctor if your incision/area has: Continuous Slow Oozing, Sudden Increased Bleeding, Increased Pain/ Swelling, Increased Redness, Foul Smelling Discharge Call your doctor if you observe: Fever of 101 or Higher Additional Instructions: If you experience any of the following, contact your healthcare provider. * Bleeding that soaks a pad every hour for 2 hours * Fever 100.4 or higher * Unrelieved incision or abdominal pain * Swelling, redness, discharge or bleeding from your incision or episiotomy site * Your incision begins to separate * Problems urinating (including inability to urinate or burning while ur inating). * Visual changes * Severe headache * Flu-like symptoms * Pain or redness in one of both of your breasts * Pain, warmth, tenderness or swelling in your legs, especially the calf area * Frequent nausea and vomiting * Symptoms of depression or anxiety If you experience any of the following, call 911 or go to the nearest Emergency Room. * Chest pain * Problems breathing * Seizure activity * Partial or complete paralysis of a body part, slurred speech, weakness or drooping of the face, or a sudden inability to walk or hold your balance Allergies/Adverse Reactions: Allergies sulfamethoxazole [From Bactrim] Allergy (Verified 01/05/20 10:10) Swelling trimethoprim [From Bactrim] Allergy (Verified 01/05/20 10:10) Swelling Medications to take at Discharge Acyclovir 400 mg PO TID 01/05/20 Vit No.130/Iron/Folic [ Tablet] 1 ea PO DAILY 01/05/20 Please Follow Up With: Annika Meeks DO When: Call to make an appointment with your doctor in 2 weeks and 6 weeks. If you had elevated Blood Pressure or 4th degree laceration you will need to be seen in 2 weeks. Primary Care Physician: Care Physician,No Primary [Primary Care Provider] - Test Results: Test results from this visit will be discussed in further detail at your follow- up appointment, if applicable.
[2020-01-06 19:08] VITALS: BP 122/83; PULSE 88; RESP 14; TEMP 36.6
== END 2020-01-06 19:15 | disposition home or self-care (01) | DRG 806 ==
LOC: WPOUT 10:43 → WP 10:43
PROVIDERS: Admitting Provider Obstetrics & Gynecology; Referring Provider Obstetrics & Gynecology; Visit Provider Obstetrics & Gynecology
DX: O77.0 Labor and delivery complicated by meconium in amniotic fluid (principal); O99.324 Drug use complicating childbirth; Z37.0 Single live birth; O69.81X0 Labor and delivery complicated by cord around neck, without compression, not applicable or unspecified; O99.334 Smoking (tobacco) complicating childbirth; F17.200 Nicotine dependence, unspecified, uncomplicated; F12.10 Cannabis abuse, uncomplicated; Z3A.39 39 weeks gestation of pregnancy; Z30.017 Encounter for initial prescription of implantable subdermal contraceptive
CPT/HCPCS: 59025; 59050; 80307; 82565; 82570; 84156; 84450; 84460; 84550; 85025; 85610; 85730; 86850; 86900; 86901; 87081; 87491; 87591; 87635; 87653; 99218; G2023; J7030; J7120; G0378; U0003

== ENCOUNTER 2021-05-14 18:15 | Emergency (ER) | payer OTHER, MEDICAID, SELFPAY ==
[2021-05-14 18:17] VITALS: BP 111/89; PULSE 89; RESP 17; TEMP 36.1; O2SAT 99; BMI 23.6
--- NOTE | 2021-05-14 18:49 | EKG12_ITS ---
Test Reason : Blood Pressure : / mmHG Vent. Rate : 069 BPM Atrial Rate : 069 BPM P-R Int : 162 ms QRS Dur : 096 ms QT Int : 388 ms P-R-T Axes : 044 005 061 degrees QTc Int : 415 ms Normal sinus rhythm with sinus arrhythmia Normal ECG Confirmed by JAMEY YOUNGER, TARAS ([id number]), communications editor SHILA GONZALEZ ([id number]) on 05/18/2021 10:46:07 AM Referred By: PL Confirmed By:TARAS CONCEPCION MD
--- NOTE | 2021-05-14 18:50 | EX.ED.VIS.PS ---
HPI HPI - Psych History of Present Illness Chief Complaint: Mental Health Informant: patient and parent Narrative Narrative: Patient is brought in by mother. This patient was diagnosed with some depression but never treated after her first child. Her second child is about 16 months old. Both children are in custody of others. First child is under the custody of the father. Her second child is under the custody of the mother of the baby's father. However, this patient does live in the same house as them. She denies suicidal homicidal thoughts. Never any thoughts of hurting her child. However she admits that she has been getting progressively more hallucinations. Most of these are auditory. Occasionally thinks she thinks she sees somebody outside the window. But she will hear voices that tell her to go into other houses. Mostly they tell her to go into houses and clean them. She was just recently arrested for doing so and got out of [facility] today when her mother picked her up. She feels that this is getting a bit worse and would like help. 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 However, she states the last thing she used was 2 or 3 weeks ago and that would be meth. It sounds like she was in [place] recently and overdosed and required a few doses of Narcan. However, she states she has never injected. She has a history of ADD as a child and was briefly on Adderall but it did not help. No other diagnosis. Nothing specifically makes her symptoms are better or worse. Her mother has been trying to get her in for a long time and the patient finally agreed. [facility] Medical History ADD (attention deficit disorder) Herpes History of gonorrhea Home Medications NK 05/14/21 [History Last Taken Unknown] Allergy/AdvReac Type Severity Reaction Status Date / Time sulfamethoxazole Allergy Swelling Verified 05/14/21 18:24 [From Bactrim] trimethoprim [From Bactrim] Allergy Swelling Verified 05/14/21 18:24 Surgical History History of foot surgery Social History Smoking Status: Current every day smoker tobacco type: cigarettes ROS ROS ED Constitutional Constitutional ED: Denies chills or fever(s) Eyes Eyes: Denies blurry vision or change in vision ENT ENT ED: Denies rhinorrhea Cardiovascular Cardiovascular: Denies chest pain or palpitations Respiratory/Chest Respiratory/Chest: Denies cough or dyspnea Gastrointestinal Gastrointestinal: Denies abdominal pain, nausea or vomiting Genitourinary Genitourinary ED: Denies dysuria or urinary frequency Musculoskeletal Musculoskeletal: Denies myalgias Integumentary Denies abscess or rash Neurologic Neurologic: Denies paresthesias or weakness Psychiatric Psychiatric: Reports anxiety and other Details: See history of present illness. ; Denies depression, suicidal ideation or suicidal thoughts Endocrine Endocrinology: Denies polydipsia or polyuria Hematologic/Lymphatic Hematologic/Lymphatic: Denies easy bleeding or easy bruising Allergic/Immunologic Allergic/Immunologic ED: Denies mouth swelling or urticaria EXAM Physical Exam Const Vital Signs: 05/14/21 18:17 Temperature 96.9 F L Temperature Source Temporal Pulse Rate 89 Respiratory Rate 17 Blood Pressure 111/89 H Blood Pressure Mean 96 Pulse Ox 99 Positive well nourished and well developed General Appearance ED: well developed and NAD HEENT Reports moist mucous membranes normocephalic and atraumatic Eyes PERRL and EOMs intact bilaterally Neck no JVD Resp normal respiratory effort and clear to auscultation bilaterally Auscultation: Negative for rales, rhonchi or wheezes Cardio Rate: regular rate Rhythm: regular rhythm GI non-tender and non-distended Palpation: soft Back/Spine no CVA tenderness Extremity normal to inspection General Extremety ED: Negative for edema or tenderness General Extremity: Negative for edema Neuro oriented x3 Neuro Narrative: Patient is oriented to person place and time. Sensorium / Orientation: alert Psych Psych Narrative: Mildly flat affect. She does admit to the hallucinations. She admits they are getting worse. She denies suicidal or homicidal thoughts. She does not do a lot of talking but has no apparent flight of ideas. Evidently family members have noted that she seems to be getting paranoid although she is not displaying a lot of that here. Skin Lesions: no lesions Rashes: no rashes MDM MDM MDM Narrative Medical decision making narrative: Patient's blood work showed normal CBC and electrolytes. Call level is 11. Tox screen is positive for meth, cocaine and marijuana. Serum is negative Covid is pending at this time. Patient is medically cleared for psychiatric evaluation and admission if needed. We will get back her Covid which will help arrange placement. Lab Data Attestation: I reviewed the patient's lab results. Labs: Laboratory Results - last 24 hr 05/14/21 05/14/21 05/14/21 19:00 19:00 19:00 WBC 9.1 RBC 4.32 Hgb 13.3 Hct 42.0 MCV 97.2 MCH 30.8 MCHC 31.7 L RDW Std Deviation 55.3 H RDW Coeff of Roma 15.3 H Plt Count 258 MPV 10.5 Immature Gran % (Auto) 0.200 Neut % (Auto) 57.8 Lymph % (Auto) 23.5 [place] % (Auto) 15.1 H Eos % (Auto) 2.9 Baso % (Auto) 0.5 Absolute Neuts (auto) 5.3 Absolute Lymphs (auto) 2.14 Nucleated RBC % 0 Sodium 140 Potassium 3.8 Chloride 103 Carbon Dioxide 30.0 Anion Gap 7 BUN 14 Creatinine 0.90 Estim Creat Clear Calc 72.73 Est GFR (MDRD) Af Amer 98 Est GFR (MDRD) Non-Af 81 BUN/Creatinine Ratio 15.5 Glucose 93 Calcium 9.3 Serum , Qual Urine Opiates Screen Urine Methadone Screen Ur Barbiturates Screen Ur Phencyclidine Scrn Ur Amphetamines Screen U Methamphetamin-MDMA U Benzodiazepines Scrn Urine Cocaine Screen U Cannabinoids Screen Ur Drug Screen Comment Ethyl Alcohol 11.0 05/14/21 05/14/21 19:00 19:00 WBC RBC Hgb Hct MCV MCH MCHC RDW Std Deviation RDW Coeff of [place] Plt Count MPV Immature Gran % (Auto) Neut % (Auto) Lymph % (Auto) [place] % (Auto) Eos % (Auto) Baso % (Auto) Absolute Neuts (auto) Absolute Lymphs (auto) Nucleated RBC % Sodium Potassium Chloride Carbon Dioxide Anion Gap BUN Creatinine Estim Creat Clear Calc Est GFR (MDRD) Af Amer Est GFR (MDRD) Non-Af BUN/Creatinine Ratio Glucose Calcium Serum , Qual NEGATIVE Urine Opiates Screen NEGATIVE Urine Methadone Screen NEGATIVE Ur Barbiturates Screen NEGATIVE Ur Phencyclidine Scrn NEGATIVE Ur Amphetamines Screen POSITIVE H U Methamphetamin-MDMA NEGATIVE U Benzodiazepines Scrn NEGATIVE Urine Cocaine Screen POSITIVE H U Cannabinoids Screen POSITIVE H Ur Drug Screen Comment Ethyl Alcohol Discharge Plan Triage Chief Complaint: Mental Health ED Provider: Ronal Mcgee Dx/Rx/DC Orders Clinical Impression: Paranoia, Hallucinations Prescriptions: No Action NK RF: 0 Primary Care Provider: Care Physician,No Primary Referrals: Care Physician,No Primary [Primary Care Provider] - Disposition Disposition: Psychiatric Hospital or Unit Discharge Location: [facility] Discharge Date/Time: 05/15/21 15:28
[2021-05-14 19:21] LABS: Absolute Lymphocyte Count 2.14 X10^3/uL (0.83-4.51); Absolute Neutrophil Count 5.3 X10^3/uL (2.0-7.7); Basophil# 0.05 X10^3/uL; Basophil% 0.5 % (0-1); Eosinophil# 0.26 X10^3/uL; Eosinophils% 2.9 % (0-5); Hemoglobin 13.3 g/dL (12.0-15.0); Lymphocyte # 2.14 X10^3/ul (0.83-4.51); Lymphocyte % 23.5 % (19-41); Mean Corp Hgb Conc 31.7 g/dL (32-36); Mean Corpuscular Hgb 30.8 pg (27.0-32.0); Mean Corpuscular Volume 97.2 fL (81-99); Mean Platelet Vol. 10.5 fl (6.2-12.0); Monocyte# 1.38 X10^3/uL; Monocyte% 15.1 % (0-10); NRBC Flagged by Analyzer 0 % (0-5); Neutrophil # 5.27 X10^3/uL (2.7-7.7); Neutrophil % 57.8 % (47-70); Platelet Count 258 K/mm3 (150-450); RBC Distribution Width CV 15.3 % (11.6-14.6); RBC Distribution Width SD 55.3 fl (35.1-43.9); Red Blood Count 4.32 M/mm3 (4.2-5.4); White Blood Count 9.1 K/mm3 (4.4-11.0)
[2021-05-14 19:33] LABS: Internal QC Validated? YES +Cl - CLEAR BKGD; Pregnancy, Serum, hCG Quali. NEGATIVE Negative
[2021-05-14 19:38] LABS: Anion Gap 7 (5-15); BUN 14 mg/dL (7-18); BUN/Creat Ratio 15.5 RATIO (10-20); Calcium,Total 9.3 mg/dL (8.5-10.1); Chloride 103 mmol/L (98-107); EST Glomerular Filtration Rate 81 mL/min (>60); Est Glom Filt Rate - Afr Amer 98 mL/min (>60); Estimated Creatinine Clearance 72.73 ml/min; Glucose 93 mg/dL (74-106); Potassium 3.8 mmol/L (3.5-5.1); Sodium Level 140 mmol/L (136-145)
[2021-05-14 20:02] LABS: Amphetamine Urine VISTA POSITIVE (<1000 ng/mL); Barbiturate Urine VISTA NEGATIVE (< 200 ng/mL); Benzodiazepine Urine VISTA NEGATIVE (< 200 ng/mL); Cocaine Urine VISTA POSITIVE (< 300 ng/mL); Ecstacy Urine VISTA NEGATIVE (< 500 ng/mL); Methadone Urine VISTA NEGATIVE (< 300 ng/mL); PCP Urine VISTA NEGATIVE (< 25 ng/mL); THC Urine VISTA POSITIVE (< 50 ng/mL); Vista UDS pH Range 6
--- NOTE | 2021-05-14 20:24 | CM.ED ---
SOCIAL WORK ASSESSMENT Referral Source: Dr. Mcgee Reason for Consult: Mental Health Evaluation Chief Compliant: Patient presents by her mother for mental health evaluation. Patient with history of post- depression. Patient with auditory and visual hallucinations. Marital/Social History: Single Living Situation: Staying with boyfriend, patient reports issues with boyfriend?s mother and will ?sleep in his car.? Support/Resources: mother, father, [facility] in the past. History: None Education and Employment History: High School graduate, unemployed Mental Health Treatment/History: depression, anxiety, post- depression, ADD. Patient reports is not treated with medication. Triggers/Stressors: being left alone, ?I started using street drugs.? Coping Skills: ?I will try to meditate and darken the room.? Abuse Issues: Patient denies any history of emotional, physical, or sexual trauma. Substance Abuse History: Patient reports history of ?coke?, meth, and heroin. Patient reports last use was 1 week ago and reports ?I used meth.? Risk to Self/Others: Suicidal- Patient denies any suicidal ideation, plan, or intent. Homicidal- Patient denies any homicidal ideation. Mental Status Exam: Orientation- A&OX3 Memory: fair Appearance/General Behavior: disheveled Mood/Affect: anxious, tearful Communication Pattern: responds to questions Thought Process: hallucinations-auditory and visual, paranoia, delusions General Intellectual Functioning: Average Judgement: poor Insight: poor Assessment: Met with patient in room. Introduced role and reason for referral. Patient anxious and tearful during assessment. Patient reports ?I need help.? Patient states history of ADD, anxiety, and post- depression. Patient states, ?I?ve been using street drugs.? Patient reports last use of a substance was meth one week ago. Patient reports having auditory and visual hallucinations. Patient reports, ?I?m scared, I don?t feel safe.? Collaboration with Dr. Mcgee, recommending inpatient psych for stabilization. This worker to facilitate placement. [place] Slip added to chart. Plan: Referral to inpatient psych Bri Mi MSW, [employer]
--- NOTE | 2021-05-14 20:25 | CM.ED ---
Addendum entered by Carlie Mi 05/14/21 22:05: Call to [facility] to check on status of referral. Intake reports has not reviewed at this time. Will review and get back to this worker. Referral called and faxed to [facility]. Pending review at this time. Original Note: SOCIAL WORK Call to [facility] who reports beds available. Will review referral. Bri Mi, POLICE COMMUNICATIONS OPERATOR, LEAD JANITOR
[2021-05-14 21:19] VITALS: BP 119/74; PULSE 79; RESP 16; O2SAT 98
[2021-05-15] VITALS (8 sets, daily range): BP systolic 102–121; BP diastolic 56–85; PULSE 67–94; RESP 12–18; O2SAT 98–100
--- NOTE | 2021-05-15 01:26 | ED.RN ---
JOSLYN ONEILL CALLED AND SAID SHE DOES NOT MEET THEIR CRITERIA
[2021-05-15 11:43] LABS: CPK Total, Creatine Kinase 52 U/L (26-192)
--- NOTE | 2021-05-15 18:59 | CM.ED ---
JES Note SW reviewed chart and noted [facility] had declined patient. SW called [facility] and asked if they reviewed the patient. [facility] needs lab work. [facility] faxed lab work to [facility]. [facility] staff called and stated that they will accept but need pink slip and [facility] covid screen (even though it had been faxed the night before). SW faxed the pink slip and covid screen. SW received call from [facility]. Patient accepted. Patient is going to [facility] [place] and MD accepting is Shailesh. Going to Dual Diagnosis unit ROom 111 B. RN to RN [phone]. JES was then advised by GWENDOLYN Pearson that patient said that she was not going to [facility]. SW explained to patient she was declined at [facility] and that was not an option. JES then advised that patient was accepted at [facility]. Patient said that she didn't want to go to [facility] and SW asked her the concerns she had and she said I didn't like their brochure. SW encouraged her to use this time at [facility] to care for herself and return home in a timely fashion. Patient then wanted to speak to her mom. JES spoke to patient's mother who stated she had talked to numerous patient and people she worked with and on line comments and felt like she did not want her daughter to go to [facility]. SW asked her concerns and she said there are fights there. JES explained that patient had been pinked slipped and patient was going as we wanted her to obtain the treatment she needed not wait in the ED. Mother said do I have any say and SW advised a pink slip has been completed for patient. Patient's mother said well, you guys should check out [facility].. there are not alot of good review. JES explained that we want patients to receive their psych treatment in a timely manner and thus patient needs to go to [facility]. Patient's mother said that she would speak to patient as she will freak out. Plan: Patient discharged to [facility] [place] ED[place] MA
== END 2021-05-15 15:28 ==
PROVIDERS: Emergency Medicine; Emergency Provider Emergency Medicine
DX: F22 Delusional disorders (principal); F17.210 Nicotine dependence, cigarettes, uncomplicated
CPT/HCPCS: 36415; 80048; 80307; 82077; 82550; 84703; 85025; 87426; 93005; 99285